=== PATIENT | female | born 1960 | race African-American/Black ===

== ENCOUNTER 2017-02-11 18:15 | Emergency (ER) | payer MEDICARE, MEDICAID ==
[~2017-02-11] VITALS: Ht 162.6 cm; Wt 117.9 kg
[2017-02-11 18:34] VITALS: BP 168/83
[2017-02-11] MEDS ORDERED: Acetaminophen 500mg (ES) tab PO ONE (18:45)
[2017-02-11 20:00] VITALS: BP 182/78
[2017-02-11] MEDS ORDERED: Ketorolac 30mg Inj IM ONE (20:15)
[2017-02-11] MEDS ORDERED: TYLENOL EXTRA500 MG ORAL (21:20)
[2017-02-11 21:45] VITALS: BP 188/82
--- NOTE | 2017-02-12 09:01 | Diagnostic Imaging Report ---
Indication: Neck pain. Technique: Continuous helical imaging of the cervical spine was obtained transaxially from the skull base to the upper thoracic spine. 2-D coronal and sagittal reformatted images were obtained. Total Dose length Product (DLP): [address] Dose Index Volume (CTDIvol): 32 mGy Comparison: None Findings: There is no acute fracture or malalignment identified. There is no soft tissue swelling identified. Anterior plate noted at C5-6. The hardware appears unremarkable. Moderate uncovertebral arthritis is demonstrated at multiple levels. Some of the intervertebral discs show narrowing and osteophytes. Impression: No acute injury Moderate spondylosis. Anterior cervical fusion C5-6. Some limitation due to body habitus. [facility] has communicated the preliminary results to the Emergency Department. Their findings are largely concordant with this report. The CT scanner at [facility] is accredited by the [employer] and the scans are performed using dose optimization techniques as appropriate to a performed exam including Automatic Exposure control.
--- NOTE | 2017-02-12 09:05 | Diagnostic Imaging Report ---
Indication: Head trauma Technique: Contiguous 5 mm thick transaxial imaging of the head obtained in a Siemens Sensation [address] scanner[address] Soft tissue and bone windows generated. Total Dose length Product (DLP): [address] Dose Index Volume (CTDIvol): 70.38 mGy Comparison: none Findings: The size and configuration of the cortical sulci, basal cisterns, and ventricles are within normal limits for age. There is no mass effect, midline shift, or edema identified. There is no evidence of acute hemorrhage or abnormal intra-axial or extra-axial fluid collections. The bones and soft tissues are unremarkable. Impression: No mass effect, edema or acute bleed. [facility] has communicated the preliminary results to the Emergency Department. Their findings are largely concordant with this report. The CT scanner at [facility] is accredited by the [employer] and the scans are performed using dose optimization techniques as appropriate to a performed exam including Automatic Exposure control.
--- NOTE | 2017-02-12 13:20 | Diagnostic Imaging Report ---
Indication: Pain Findings: 3 views of the right shoulder were obtained. No acute fractures, malalignment, erosions or periostitis are identified. Bone mineralization is within normal limits. Soft tissues are unremarkable. Impression: Negative examination of the shoulder.
--- NOTE | 2017-02-12 13:20 | Diagnostic Imaging Report ---
Indication: Pain Findings: 3 views of the left shoulder were obtained. Alignment of the left shoulder is normal. No acute fracture is identified. Soft tissues are unremarkable. Impression: Negative left shoulder examination
--- NOTE | 2017-02-12 14:06 | Emergency Room Report ---
History of Present Illness General Chief Complaint: Multiple Trauma/Fall Source: Patient, EMS Present Illness HPI 56-year-old female presents ED complaining of neck and shoulder pain status post fall. Patient states she was sitting on her walker and moving backward at a bus stop when the walker to get over it she fell backwards hitting her head. No LOC. Patient is here complaining of pain to the back of her head, neck pain and bilateral shoulder pain. 10 out of 10. Throbbing. Nonradiating. Denies diplopia, blurry vision, nausea or vomiting. Denies chest pain shortness of breath. No aggravating relieving factors. Denies any other associated symptoms Allergies: Coded Allergies: CODEINE (Verified Allergy, Unknown, 02/11/17) Uncoded Allergies: CODEIN (Allergy, Unknown, 02/11/17) Patient History Past Medical History: DM, HTN Pertinent Family History: none Social History: Denies: alcohol use, drug use, smoking Now: No Immunizations: UTD Reviewed Nursing Documentation: PMH: Agreed, PSxH: Agreed Nursing Documentation-PMH Past Medical History: No History, Except For Hx Cardiac Problems: Yes - HTN Hx Hypertension: Yes Hx Diabetes: Yes - Diabetes Mellitus Hx Cerebrovascular Accident: Yes - Pt stated past stroke Review of Systems All Other Systems: negative except mentioned in HPI Physical Exam Vital Signs Date Time Temp Pulse Resp B/P Pulse Ox O2 Delivery O2 Flow Rate FiO2 02/11/17 18:10 97.5 79 16 180/75 99 Room Air Sp02 EP Interpretation: reviewed, normal General Appearance: no apparent distress, alert, GCS 15, non-toxic Head: normocephalic, atraumatic Eyes: bilateral eye PERRL, bilateral eye normal inspection ENT: hearing grossly normal, normal pharynx, no angioedema, normal voice Neck: full range of motion, supple/symm/no masses, tender midline Respiratory: chest non-tender, lungs clear, normal breath sounds, speaking full sentences Cardiovascular #1: regular rate, rhythm, no edema Gastrointestinal: normal bowel sounds, non tender, soft, non-distended, no guarding, no rebound Rectal: deferred Genitourinary: no CVA tenderness Musculoskeletal: tender - bilateral shoulder pain Neurologic: alert, oriented x3, responsive, motor strength/tone normal, sensory intact, speech normal Psychiatric: judgement/insight normal, memory normal, mood/affect normal, no suicidal/homicidal ideation Skin: normal inspection Lymphatic: normal inspection Medical Decision Making Diagnostic Impression: Primary Impression: Multiple injuries due to trauma Additional Impression: Head injury Qualified Codes: S09.90XA - Unspecified injury of head, initial encounter ER Course Hospital Course 56-year-old F presents to ED complaining of head,neck and shoulder pain s/p trip and fall Differential diagnoses include: Fracture, dislocation, sprain, contusion Clinical course Patient placed on stretcher. After initial history and physical, I ordered pain medications and CT of head, Cspine, bilateral shoulder xrays CT head and Cspine unremarkable Xrays prelim read shows no acute fracture/dislocation. on reassessment pain is improved Diagnosis - multiple injuries due to trauma, head injury Stable and discharged to home with prescription for Tylenol. apply ice. Followup with PMD. Return to ED if symptoms recur or worsen Other X-Ray Diagnostic Results Other X-Ray Diagnostic Results : X-Ray Ordered: L shoulder, R shoulder EP Interpretation: Yes Findings: no fractures, no dislocation, no soft tissue swelling Number of Views: 3 Other Impression Left shoulder-No fracture, no dislocation, no soft tissue swelling Right shoulder-No fracture, no dislocation, no soft tissue swelling CT/MRI/US Diagnostic Results CT/MRI/US Diagnostic Results : Imaging Test Ordered: CT head, CT Cspine Impression CT head- no acute process CT Cspine- no acute process Last Vital Signs Date Time Temp Pulse Resp B/P Pulse Ox O2 Delivery O2 Flow Rate FiO2 02/11/17 21:45 75 18 188/82 94 Room Air 02/11/17 18:34 97.5 Status: improved Disposition: HOME, SELF-CARE Condition: Stable Scripts Acetaminophen* (TYLENOL EXTRA STRENGTH*) 500 Mg Tablet 500 MG ORAL Q8H Y for Prn Headache/Temp > 101, #30 TAB 0 Refills Prov: AVA BRANNON M.D. 02/11/17 Referrals: [facility]ERR[facility] (PCP) Patient Instructions: Head Injury, Adult, [id number] AVA BRANNON M.D. Feb 12, 2017 14:06
== END 2017-02-11 21:45 | disposition home or self-care (01) ==
LOC: EDBD 18:15 → EMR 18:49
DX: S09.90XA Unspecified injury of head, initial encounter (principal); M54.2 Cervicalgia; M25.512 Pain in left shoulder; M25.511 Pain in right shoulder; Z88.6 Allergy status to analgesic agent; I10 Essential (primary) hypertension; E11.9 Type 2 diabetes mellitus without complications; Z86.73 Personal history of transient ischemic attack (TIA), and cerebral infarction without residual deficits; W19.XXXA Unspecified fall, initial encounter; Y93.9 Activity, unspecified; Y92.811 Bus as the place of occurrence of the external cause
CPT/HCPCS: 70450; 72125; 73030; 96372; 99284; J1885